=== PATIENT | female | born 1975 | race Caucasian/White ===

== ENCOUNTER → 2017-09-08 | Outpatient (CLI) | payer OTHER ==
[~2017-09-08] MED LIST: PRENTAB26 PO
--- NOTE | 2017-09-08 16:04 | DIAGNOSTIC IMAGING REPORT ---
CT OF THE SINUSES WITHOUT CONTRAST FUSION PROTOCOL CLINICAL HISTORY: Recurrent sinonasal symptoms. Recurrent sinusitis. COMPARISON STUDY: MRI of the brain November 29, 2007. TECHNIQUE: Axial images of the sinuses were obtained without IV contrast according to Fusion protocol. Coronal reformats were viewed. FINDINGS: Visualized portions of the intracranial contents are unremarkable on this unenhanced exam. The mastoid air cells and middle ears are clear. The ossicles are intact. The orbits are unremarkable. There is moderate mucosal thickening with secretions within the left maxillary sinus. There is also mucosal thickening with secretions within the right frontal sinus. The left frontal sinus is clear. There are are a few opacified ethmoid air cells. The sphenoethmoidal recesses are patent. Sphenoid sinuses are clear. There is mild mucosal thickening of the right maxillary sinus. Note is made of mild rightward deviation of the nasal septum with spur formation. No mass or bony destruction is present within the sinuses or the nasal cavity. The ostiomeatal complexes are patent. The frontoethmoidal recesses are patent. IMPRESSION: 1. Mild to moderate mucosal thickening and secretions within the left maxillary and right frontal sinuses. 2. Patent major drainage pathways. 3. Mild rightward deviation of the nasal septum with spur formation. Electronically signed by: Glen Drummond M.D. 09/08/2017 4:03 PM Dictated Date/Time: 09/08/2017 3:57 PM
== END | disposition home or self-care (01) ==
LOC: C.CTS 15:15
PROVIDERS: ATTEND Physician Assistant
DX: J01.91 Acute recurrent sinusitis, unspecified (principal)